=== PATIENT | male | born 1960 | race Caucasian/White ===

== ENCOUNTER 2021-02-06 13:01 | Inpatient (IN) | payer MEDICAID, SELFPAY ==
[~2021-02-06] VITALS: Ht 172.7 cm; Wt 82.1 kg
[~2021-02-06 13:01] MED LIST: FURO-572 PO; LACT10SO86 PO; OMEP40EC24 PO; POTA10TE30 PO; SODI100076 PO; SPIR50TA PO
[2021-02-06 13:12] VITALS: BP 117/86
--- NOTE | 2021-02-06 13:16 | NUR ---
Patient ambulated to bed 6 with steady/even gait, accompanied by caregiver.
--- NOTE | 2021-02-06 13:25 | NUR ---
Patient ambulated to restroom for urine sample.
--- NOTE | 2021-02-06 13:33 | NUR ---
Pt back onto bed from restroom; urine sample collected.
--- NOTE | 2021-02-06 13:35 | NUR ---
60 y/o M brought in from caregiver from home with c/c of abdominal distention. Per caregiver, patient has had cirrhosis for 2-3 months that has been worsening. Caregiver states patient was admitted on 01/26/21 at [facility] for 5 days, discharged with MD follow up with paracentesis. Caregiver states she has an appt tomorrow for paracentesis approval at 5pm, however, patient's abdominal distension worsen. Caregiver states larger abdomen, gaining 12 lbs in one week. Pt states associated SOB, difficulty walking. Pt denies fever, chills, cough, cold-like symptoms, chest pain. Pt placed onto property assessment monitor. Bed locked in lowest position, side rails x 1, call light in reach. PMH/Meds: Cirrhosis; Lasix, 1g Sodium Chloride, Potassium Cl 10 mEq, Lactulose 10g in 15mL NKA
--- NOTE | 2021-02-06 13:50 | NUR ---
Dr. Yadav is evaluating patient at bedside.
--- NOTE | 2021-02-06 14:32 | NUR ---
Patient resting in position of comfort. Respirations even/unlabored. All pt needs met at this time. pizza cook remains in place. Bed locked in lowest position, side rails x 2 for pt safety, call light in reach.
[2021-02-06 14:35] LABS: BASOPHILS % (AUTO) 0.1 % (0.0-2.0); EOSINOPHILS % (AUTO) 0.6 % (0.0-4.0); HEMATOCRIT 30.4 % (36-52); HEMOGLOBIN 10.6 g/dL (12.0-18.0); LYMPHOCYTES # (AUTO) 0.6 K/uL (2.0-11.5); LYMPHOCYTES % (AUTO) 8.2 % (20.5-51.1); MEAN CORPUSCULAR HEMOGLOBIN 39 pg (27-31); MEAN CORPUSCULAR HGB CONC 35 g/dL (33-37); MEAN CORPUSCULAR VOLUME 112.3 fL (80-94); MONOCYTES # (AUTO) 0.7 K/uL (0.8-1.0); MONOCYTES % (AUTO) 9.1 % (1.7-9.3); NEUTROPHILS # (AUTO) 6.1 K/uL (1.8-7.7); PLATELET COUNT (AUTO) 114 K/uL (140-450); RED BLOOD CELL COUNT(AUTO) 2.71 MIL/uL (4.20-6.10); RED CELL DISTRIBUTION WIDTH 19.1 % (11.6-13.7); WHITE BLOOD COUNT (AUTO) 7.4 K/uL (4.8-10.8)
--- NOTE | 2021-02-06 14:35 | NUR ---
Blood sample collected, handed to paola Rodriguez tech in ER bedside.
[2021-02-06 14:54] LABS: PROTHROMBIN TIME 11.9 secs (10.8-13.4)
[2021-02-06 15:09] LABS: ALBUMIN 2.9 g/dL (3.4-5.0); ANION GAP 14.2 (8-16); CARBON DIOXIDE 20.5 mmol/L (21-32); CREATININE 1.3 mg/dL (0.6-1.3); POTASSIUM 4.7 mmol/L (3.5-5.1)
--- NOTE | 2021-02-06 15:34 | NUR ---
Patient is resting with both eyes awake; semi-fowlers position. Respirations even/unlabored. All pt needs met at this time. engine monitor remains in place. Bed locked in lowest position, side rails x 1, call light in reach.
--- NOTE | 2021-02-06 15:35 | NUR ---
Patient provided with urinal at bedside.
--- NOTE | 2021-02-06 16:10 | NUR ---
COVID SWAB COLLECTED AND WALKED TO LAB.
--- NOTE | 2021-02-06 16:15 | NUR ---
Note ani in ED - 02/06/21 at 1739 by JOSE Patient is laying in semi-fowlers position. Respirations even/unlabored. telemetry monitor remains in place. Bed locked in lowest position, side rails x 1, call light in reach.
--- NOTE | 2021-02-06 16:29 | NUR ---
Patient is laying in semi-fowlers position. Respirations even/unlabored. engine monitor remains in place. Bed locked in lowest position, side rails x 1, call light in reach.
--- NOTE | 2021-02-06 16:42 | NUR ---
Report given to HANNAH Cantor.
--- NOTE | 2021-02-06 17:15 | NUR ---
Patient advised of ETA of transport to Telemetry. Pt is sitting upright with both eyes open in semi-fowlers. Respirations even/unlabored. front desk monitor remains in place. Bed locked in lowest position, side rails x 1, call light in reach.
--- NOTE | 2021-02-06 17:30 | NUR ---
Patient will be admitted to care of Dr. Gonzalez. Admited to Telemetry. Will go to room 105B. Belongings list completed. Report to HANNAH Cantor.
--- NOTE | 2021-02-06 17:35 | NUR ---
RECEIVED REPORT FROM ER NURSE FOR CONTINUITY OF CARE. PATIENT AWAKE, AAOX4, ABLE TO MAKE NEEDS KNOWN. ON TELE MONITOR. SODIUM LEVEL 121, NO MEDS GIVEN IN THE ER. IV TO LEFT AC 20G SALINE LOCK. VITAL SIGNS TAKEN. PATIENT DENIES PAIN OR SOB UPON ASSESSMENT. PATIENT STATED SOB ON EXERTION. ABDOMEN ROUND, FIRM, DISTENDED R/T ASCITES. PATIENT GAINED 12LBS FOR 1 WEEK. ORIENTED PATIENT TO THE ROOM AND HOSPITAL ENVIRONMENT. MRSA SWAB COLLECTED. SAFETY MEASURES IN PLACE, WILL CONTINUE TO MONITOR.
[2021-02-06 17:45] VITALS: BP 98/62
--- NOTE | 2021-02-06 18:12 | NUR ---
UPDATED PATIENT'S NIECE, ROXY ([id number]) REGARDING PATIENT'S CONDITION.
[2021-02-06] MEDS ORDERED: POTASSIUM CHLORIDE 10 MEQ TABER PO PRN (19:05)
[2021-02-06] MEDS ORDERED: ZOLPIDEM 5 MG TAB PO PRN (19:05)
[2021-02-06] MEDS ORDERED: HYDROcodone/APAP 7.5/325 MG 1 TAB PO PRN (19:05)
[2021-02-06] MEDS ORDERED: ONDANSETRON 4 MG/2 ML VIAL IM/IVP PRN (19:05)
[2021-02-06] MEDS ORDERED: ACETAMINOPHEN 325 MG TAB PO PRN (19:05)
[2021-02-06] MEDS ORDERED: guaiFENesin DM 200/20 MG-10 ML 10 ML UDC PO PRN (19:05)
[2021-02-06] MEDS ORDERED: DOCUSATE SODIUM 100 MG GELCAP PO PRN (19:05)
--- NOTE | 2021-02-06 19:20 | NUR ---
ENDORSED PATIENT TO SPORTS PHYSICAL THERAPIST RN FOR CONTINUITY OF CARE. PATIENT IN STABLE CONDITION.
[2021-02-06 19:55] LABS: CHOL/HDL RATIO 4.4 (1-4.5); FREE T4 (FREE THYROXINE) 0.67 ng/dL (0.76-1.46); MAGNESIUM 2.1 mg/dL (1.8-2.4); PHOSPHORUS 3.9 mg/dL (2.5-4.9); THYROID STIMULATING HORMONE 7.36 uIU/mL (0.34-3.74)
[2021-02-06 20:00] VITALS: BP 111/68
--- NOTE | 2021-02-06 20:00 | NUR ---
RECEIVED PATIENT A/A/OX3, LAYING IN BED. NO SIGN AND SYMPTOMS OF DISTRESS NOTED AT THIS TIME.PATIENT DENIES ANY ABDOMINAL PAIN, NAUSEA AND VOMITING. VITAL SIGNS STABLE, AFEBRILE, SATING 100% ON RA. SR ON AIRCRAFT ENGINEER, HR-72. FALL PRECAUTION IMPLEMENTED. INSTRUCTED THE PT TO CALL FOR ASSISTANCE AT ALL TIMES. PT VERBALIZED UNDERSTANDING. CALL LIGHT WITHIN REACH. WILL CONTINUE POC AND MONITORING.
[2021-02-06 20:01] LABS: APPEARANCE,URINE CLEAR (CLEAR); BILIRUBIN,URINE 1+ (NEGATIVE); BLOOD, URINE 2+ (NEGATIVE); COLOR,URINE DARK YELLOW (YELLOW); LEUKOCYTE ESTERASE ,URINE NEGATIVE (NEGATIVE); NITRITE, URINE NEGATIVE (NEGATIVE); PH,URINE 5.5 (5.0-9.0); UGLUCOSE NEGATIVE (NEGATIVE)
[2021-02-06 20:06] LABS: RBC,URINE 11-20 (MOD) /HPF (0-5); WBC,URINE 0-5 /HPF (0-5)
[2021-02-06 20:18] LABS: BARBITURATE, URINE NEGATIVE ng/ml (NEG <=200); BENZODIAZEPINE, URINE NEGATIVE ng/mL (NEG <=200); CANNABINOID, URINE NEGATIVE ng/mL (NEG <=50); COCAINE, URINE NEGATIVE ng/mL (NEG <=300); OPIATE, URINE NEGATIVE ng/mL (NEG <=2000); PHENCYCLIDINE SCREEN,URINE NEGATIVE ng/mL (NEG <=25)
[2021-02-06] MEDS: SODIUM CHLORIDE 1 GM TAB PO SCH (20:29)
[2021-02-06] MEDS: LACTULOSE 20 GM/30 ML UDC PO SCH (21:36)
--- NOTE | 2021-02-06 22:00 | NUR ---
Administered all the scheduled medications as ordered. patient tolerated it well and no adverse drug reaction noted and no complain from the patient.
[2021-02-07] VITALS: BP 101/67
--- NOTE | 2021-02-07 | NUR ---
PATIENT VITALS SIGNS STABLE, SATING 99% ON RA. NO COMPLAIN OF PAIN AT THIS TIME. SR ON EHS SPECIALIST, HR-[id number].
--- NOTE | 2021-02-07 02:00 | NUR ---
PATIENT ASLEEP AT THIS TIME. NO SIGN AND SYMPTOMS OF DISTRESS NOTED AT THIS TIME. VISIBLE CHEST RISE AND FALL NOTED. SAFETY MEASURES IN PLACED.
[2021-02-07 04:00] VITALS: BP 116/77
--- NOTE | 2021-02-07 04:00 | NUR ---
PATIENT VITALS SIGNS STABLE, SATING 100% ON RA. NO COMPLAIN OF PAIN AT THIS TIME. SR ON BUSINESS MGR, HR-[id number].
[2021-02-07 06:39] LABS: BASOPHILS % (AUTO) 0.3 % (0.0-2.0); EOSINOPHILS # (AUTO) 0.1 K/uL (0-0.4); LYMPHOCYTES # (AUTO) 0.8 K/uL (2.0-11.5); MEAN CORPUSCULAR HEMOGLOBIN 40 pg (27-31); MEAN CORPUSCULAR HGB CONC 35 g/dL (33-37); MEAN CORPUSCULAR VOLUME 113.3 fL (80-94); MONOCYTES # (AUTO) 0.7 K/uL (0.8-1.0); MONOCYTES % (AUTO) 11.5 % (1.7-9.3); NEUTROPHILS # (AUTO) 4.5 K/uL (1.8-7.7); NEUTROPHILS % (AUTO) 74.2 % (42.2-75.2); PLATELET COUNT (AUTO) 121 K/uL (140-450); RED BLOOD CELL COUNT(AUTO) 2.74 MIL/uL (4.20-6.10); RED CELL DISTRIBUTION WIDTH 18.9 % (11.6-13.7)
--- NOTE | 2021-02-07 07:20 | NUR ---
RECEIVED BEDSIDE ENDORSEMENT FROM NIGHTSTXFT NURSE FOR CONTINUITY OF CARE.
[2021-02-07 07:51] LABS: ANION GAP 13.9 (8-16); CARBON DIOXIDE 21.7 mmol/L (21-32); CREATININE 1.2 mg/dL (0.6-1.3); POTASSIUM 5.6 mmol/L (3.5-5.1)
[2021-02-07 08:00] VITALS: BP 116/75
[2021-02-07] MEDS: PANTOPRAZOLE 40 MG TABEC PO SCH (08:56)
[2021-02-07] MEDS: SODIUM CHLORIDE 1 GM TAB PO SCH (08:57)
[2021-02-07] MEDS: LACTULOSE 20 GM/30 ML UDC PO SCH ×3 (08:58→17:26)
[2021-02-07] MEDS ORDERED: FUROSEMIDE 20 MG TAB PO SCH (09:00)
[2021-02-07] MEDS ORDERED: SPIRONOLACTONE 50 MG TAB PO SCH (09:00)
--- NOTE | 2021-02-07 09:11 | NUR ---
ADMINISTERED PRESCRIBED MEDS PER MD ORDER. PATIENT TOLERATED WELL. MEDICATION EDUCATION PROVIDED. REINFORCEMENT NEEDED. PATIENT HAD SMALL LIQUID EMESIS DURING ADMINISTRATION, APROX 300ML. PATIENT DENIES PAIN, STATED FEELING BETTER AFTER EMESIS. PATIENT STATED HAS HAD 3 SMALL BM THIS AM, NOT DIARRHEA. SAFETY MEASURES IN PLACE. WILL CONTINUE TO MONITOR.
--- NOTE | 2021-02-07 09:21 | NUR ---
PATIENT HAS BEEN SCREENED AND CATEGORIZED MODERATE NUTRITION RISK. PATIENT WILL BE SEEN WITHIN 3-5 DAYS OF ADMISSION. 02/09/21 02/11/[address]
[2021-02-07] MEDS ORDERED: LEVOTHYROXINE SODIUM 100 MCG VIAL IV SCH (09:30)
[2021-02-07] MEDS ORDERED: SODIUM ZIRCONIUM CYCLOSILICATE 10 GM POWD.PACK PO SCH (10:00)
--- NOTE | 2021-02-07 10:56 | NUR ---
SOCIAL WORK NOTE: Patient's Orientation Unable To Assess Information Provided By NOEL BAIRD Comments SW WAS UNABLE TO MEET PATIENT AT BEDSIDE. SW COMPLETED ASSESSMENT WITH PATIENT'S FAMILY. University Internship, Realtionship and Phone Number NOEL SMITH [phone] Healthcare Power of Packing Clerk No Does Patient Have a POLST No Identifying Problems No Social Work Triggers Is A Social Work Consult Needed No Mandate Report Filed No Explanation Of Identifying Problems PATIENT IS A 60-YEAR-OLD MALE ADMITTED FOR ASCITES AND HYPONATREMIA. PATIENT HAS PMHX OF LIVER CIRRHOSIS AND ASCITES. Admitted From Home Pre-Admission Level Of Functioning Status Independent/Ambulatory Prior Resources/Services Used In Last 12 Months No Prior Resources Used Prior DME No Prior DME Used Dialysis Comments N/A Living Situation Lives With Family House Patient Had Caregiver No Home Support No Caregiver Issues Financial Issues No Known Financial Issue Referral To The Financial Counselor Needed No Factors/Needs No D/C Needs Identified Pt/Rep Participated In Discharge Plan Yes Patient/Family Agress With Discharge Plan Yes Discharge Plan Comments TENTATIVE DISCHARGE PLAN IS FOR PATIENT TO RETURN HOME. DC Plan Status Initiated
[2021-02-07] MEDS ORDERED: LEVOTHYROXINE 0.05 MG TAB PO SCH (11:00)
[2021-02-07 12:00] VITALS: BP 111/76
--- NOTE | 2021-02-07 12:03 | NUR ---
ADMINISTERED PRESCRIBED MEDS PER MD ORDER. PATIENT TOLERATED WELL. MEDICATION EDUCATION PROVIDED. REINFORCEMENT NEEDED. RESPIRATORY CARE INSTRUCTOR AT BEDSIDE, PATIENT DENIES PAIN. NO SIGNS OF DISTRESS NOTED. SAFETY MEASURES IN PLACE. WILL CONTINUE TO MONITOR.
--- NOTE | 2021-02-07 12:12 | NUR ---
DC PLANNIN YRS OLD MALE PATIENT WAS ADMITTED FROM HOME WITH A DX OF ASCITES, HYPONATREMIA, HEPATORENAL SYNDROME AND LIVER MASS. NA+122 K+5.6 . PT HAS A HX OF ADVANCED LIVER CIRRHOSIS , HEPATIC ENCEPHALOPATHY. CXR SHOWED LOW LUNG VOLUMES AND MILD BIBASAL ATELECTASIS. RAPID COVID TEST NEGATIVE. CT ABD SOWED ADMINISTERED IV LASIX AND CONTINUED HOME MEDS. CONSULTED NEPHRO AND GI. DC PLAN TO GO HOME WHEN STABLE CM TO FOLLOW.
--- NOTE | 2021-02-07 13:50 | NUR ---
ADMINISTERED PRESCRIBED MEDS PER MD ORDER. PATIENT TOLERATED WELL. MEDICATION EDUCATION PROVIDED. REINFORCEMENT NEEDED. PATIENT ABLE TO MAKE NEEDS KNOWN, PATIENT PROVIDED W/ REQUESTED SNACK. DENIES PAIN. SAFETY MEASURES IN PLACE. WILL CONTINUE TO MONITOR
--- NOTE | 2021-02-07 15:59 | NUR ---
HOURLY ROUNDING PERFORMED. PATIENT IS RESTING IN BED. ABLE TO MAKE NEEDS KNOWN. NO SIGNS OF DISTRESS OR DISCOMFORT. SAFETY MEASURES IN PLACE. WILL CONTINUE TO MONITOR.
[2021-02-07 16:00] VITALS: BP 107/60
--- NOTE | 2021-02-07 17:30 | NUR ---
ADMINISTERED PRESCRIBED MEDS PER MD ORDER. PATIENT UP AD CARLOTTA W/ STEADY GAIT. PATIENT DENIES PAIN. PATIENT TOLERATED MEDICATION WELL. MEDICATION EDUCATION REINFORCEMENT NEEDED. SAFETY MEASURES IN PLACE. WILL CONTINUE TO MONITOR.
[2021-02-07] MEDS ORDERED: ALBUMIN HUMAN 25% 100 ML IV ONE (17:40)
[2021-02-07] MEDS ORDERED: NACL 3% 500 ML IV ONE (17:45)
--- NOTE | 2021-02-07 19:06 | NUR ---
ADMINISTERED PRESCRIBED MEDS PER MD ORDER. PATIENT TOLERATED WELL. MEDICATION EDUCATION PROVIDED. SAFETY MEASURES IN PLACE. PATIENT DINNER TRAY AT BEDSIDE.
--- NOTE | 2021-02-07 19:23 | NUR ---
BEDSIDE ENDORSEMENT PROVIDED TO NIGHTSHIFT NURSE FOR CONTINUITY OF CARE.
[2021-02-07 20:00] VITALS: BP 93/72
--- NOTE | 2021-02-07 20:00 | NUR ---
RECEIVED PATIENT A/A/AOX4, LAYING IN BED WATCHING TV DURING ROUNDS. NO SIGN AND SYMPTOMS OF DISTRESS NOTED. PATIENT S/P PARACENTESIS TODAY. PUNCTURE SITE WITH DRESSING ON THE LEFT LOWER ABDOMEN C/D/I. PATIENT DENIES ANY PAIN AT THIS TIME. IVF INFUSING ORDERED.SR ON SECURITY FLEX OFFICER, HR-[id number]. INSTRUCTED THE PT TO SAVE ALL HIS URINE FOR STRICT I & O AND MADE AWARE THAT HE IS ON A FLUID RESTRICTION. PATIENT VERBALIZED UNDERSTANDING WITH THE POC. CALL LIGHT WITHIN REACH. WILL CONTINUE POC AND MONITORING.
[2021-02-07 20:40] LABS: GLUCOSE,BODY FLUID 108 mg/dL
--- NOTE | 2021-02-07 22:00 | NUR ---
NO SCHEDULED MEDICATION AT THIS TIME. PT ASKED FOR 2 JELLO AND GIVEN. REMINDED PT ABOUT HIS FLUID RESTRICTIONS AND VERBALIZED UNDERSTANDING. CALL LIGHT WITHIN REACH.
[2021-02-08] VITALS: BP 92/59
--- NOTE | 2021-02-08 | NUR ---
Patient 92/59, pt aspmtomatic. Denies dizziness or lightheadedness. HR-72, afebrile, sating 99% on RA. SR on vehicle monitor technician, HR- 72. Denies any pain at this time. Call light within reach. Will continue to monitor vital signs. Addendum: 02/08/21 at 0328 by Evangelina Ramirez RN RN correction: Pt BP 92
--- NOTE | 2021-02-08 02:00 | NUR ---
PATIENT ASLEEP AT THIS TIME. NO SIGN AND SYMPTOMS OF DISTRESS NOTED AT THIS TIME. VISIBLE CHEST RISE AND FALL NOTED. SAFETY MEASURES IN PLACED.
[2021-02-08 04:00] VITALS: BP 104/66
--- NOTE | 2021-02-08 04:00 | NUR ---
PATIENT VITALS SIGNS STABLE, SATING 99% ON RA. NO COMPLAIN OF PAIN AT THIS TIME. SR ON EDITOR, HR-75.
[2021-02-08 06:02] LABS: BASOPHILS % (AUTO) 0.6 % (0.0-2.0); EOSINOPHILS # (AUTO) 0.1 K/uL (0-0.4); EOSINOPHILS % (AUTO) 1.3 % (0.0-4.0); HEMATOCRIT 29.3 % (36-52); HEMOGLOBIN 10.3 g/dL (12.0-18.0); LYMPHOCYTES # (AUTO) 0.6 K/uL (2.0-11.5); LYMPHOCYTES % (AUTO) 14.1 % (20.5-51.1); MEAN CORPUSCULAR HEMOGLOBIN 40 pg (27-31); MEAN CORPUSCULAR HGB CONC 35 g/dL (33-37); MEAN CORPUSCULAR VOLUME 113.3 fL (80-94); MONOCYTES # (AUTO) 0.6 K/uL (0.8-1.0); NEUTROPHILS # (AUTO) 3.1 K/uL (1.8-7.7); PLATELET COUNT (AUTO) 98 K/uL (140-450); RED BLOOD CELL COUNT(AUTO) 2.59 MIL/uL (4.20-6.10); RED CELL DISTRIBUTION WIDTH 18.8 % (11.6-13.7); WHITE BLOOD COUNT (AUTO) 4.3 K/uL (4.8-10.8)
[2021-02-08 06:17] LABS: CARBON DIOXIDE 21.6 mmol/L (21-32); POTASSIUM 5.6 mmol/L (3.5-5.1)
--- NOTE | 2021-02-08 06:22 | NUR ---
PATIENT STABLE. NO ACUTE EVENT THROUGHOUT THE NIGHT. NO COMPLAIN AT THIS TIME. MEDICATED THE PT FOR PAIN EARLIER. ALL NEEDS ATTENDED. CALL LIGHT WITHIN REACH. WILL ENDORSE THE PT TO THE ONCOMING RN FOR CONTINUITY OF CARE.
[2021-02-08] MEDS: LEVOTHYROXINE 0.05 MG TAB PO SCH (06:34)
--- NOTE | 2021-02-08 07:29 | NUR ---
PT REPORT RECEIVED FROM NIGHT NURSE. PT IS RESTING IN BED. NO S/S OF DISTRESS. LEFT FORE ARM IV 20 G IS CLEAN DRY AND INTACT. L HAND 22 G IS PATENT DRY AND CLEAN. ALL SAFETY MEASURES ARE IN PLACE. CALL LIGHT IS WITHIN REACH WILL CONTINUE TO MONITOR.
[2021-02-08 08:00] VITALS: BP 99/66
[2021-02-08] MEDS: NACL 0.9% 1,000 ML IV SCH ×2 (08:20→21:40)
[2021-02-08] MEDS ORDERED: ALBUMIN HUMAN 25% 100 ML IV ONE (09:00)
[2021-02-08] MEDS ORDERED: SODIUM ZIRCONIUM CYCLOSILICATE 10 GM POWD.PACK PO SCH (09:00)
[2021-02-08] MEDS ORDERED: FUROSEMIDE 20 MG TAB PO SCH (09:00)
[2021-02-08] MEDS: LACTULOSE 20 GM/30 ML UDC PO SCH ×3 (09:06→17:26)
[2021-02-08] MEDS: PANTOPRAZOLE 40 MG TABEC PO SCH (09:08)
--- NOTE | 2021-02-08 09:29 | NUR ---
ADMINISTERED PRESCRIBED MEDS PER MD ORDER. PT EDUCATED AND VERBALIZED UNDERSTANDING PATIENT RESTING IN BED.PATIENT SHOWS NO SIGNS OF PAIN, DISCOMFORT OR DISTRESS. RESPIRATIONS EVEN AND UNLABORED ON ROOM AIR. SAFETY MEASURES IN PLACE. WILL CONTINUE TO MONITOR.
[2021-02-08 10:48] LABS: T4 (THYROXINE) 2.6 ug/dL (4.5 - 12.0)
--- NOTE | 2021-02-08 10:49 | NUR ---
PT IS RESTING IN BED COMFORTABLY ON HIS SIDE. PT DENIES PAIN AT THIS TIME. NO SIGNS OR SYMPTOMS OF DISTRESS. RESPIRATIONS EVEN AND UNLABORED. CALL LIGHT IS WITHIN REACH. PT IS ABLE TO MAKE TO MAKE NEEDS KNOWN. SAFETY MEASURES IN PLACE. WILL CONTINUE TO MONITOR.
[2021-02-08 12:00] VITALS: BP 107/68
--- NOTE | 2021-02-08 12:15 | NUR ---
PT IS AMBULATED TO THE RESTROOM. TOLERATED WELL. PT AMBULATED TO BED. NO S/S OF DISTRESS. CALL LIGHT IS WITHIN REACH. ALL SAFETY MEASURES ARE IN PLACE WILL CONTINUE TO MONITOR.
--- NOTE | 2021-02-08 13:30 | NUR ---
MEDICATION GIVEN PER MD ORDER. PT EDUCATED AND VERBALIZED UNDERSTANDING. NO S/S OF DISTRESS. CALL LIGHT IS WITHIN REACH. ALL SAFETY MEASURES ARE IN PLACE WILL CONTINUE TO MONITOR.
--- NOTE | 2021-02-08 15:30 | NUR ---
SPOKE TO CAREGIVER NOEL. AND UPDATED . NIECE VERBALIZED UNDERSTANDING. SHE SPOKE TO PATIENT.NO S/S OF DISTRESS. CALL LIGHT IS WITHIN REACH. ALL SAFETY MEASURES ARE IN PLACE WILL CONTINUE TO MONITOR.
[2021-02-08 16:00] VITALS: BP 101/65
--- NOTE | 2021-02-08 17:23 | NUR ---
PT IN BED.MEDICATION GIVEN PER MD ORDER.PT TOLERATED WELL. PT EDUCATED AND VERBALIZED UNDERSTANDING. NO S/S OF DISTRESS. CALL LIGHT IS WITHIN REACH. ALL SAFETY MEASURES ARE IN PLACE WILL CONTINUE TO MONITOR.
[2021-02-08 17:42] LABS: ALBUMIN,BODY FLUID 0.8 g/dL
[2021-02-08 18:34] LABS: APPEARANCE,SPUN,BODY FLUID CLEAR (CLEAR); APPEARANCE,UNSPUN,BODY FLUID CLEAR (CLEAR); COLOR,BODY FLUID YELLOW (LT YELLOW); SPECIMENTYPE,BODY FLUID PARACENTESIS; TOTAL VOLUME,BODY FLUID 12000 mL; WBC, BODY FLUID 0 /cu. mm.
[2021-02-08 18:35] LABS: RBC, BODY FLUID 5782 /cu. mm.
--- NOTE | 2021-02-08 18:55 | NUR ---
PT IS SITTING IN BED EATING DINNER. NO S/S OF DISTRESS. CALL LIGHT IS WITHIN REACH. ALL SAFETY MEASURES ARE IN PLACE WILL ENDORSE TO DEMOLITION HAMMER OPERATOR NURSE FOR CONTINUITY OF CARE.
[2021-02-08 20:00] VITALS: BP 103/53
--- NOTE | 2021-02-08 20:00 | NUR ---
RECEIVED PATIENT A/A/AOX4, LAYING IN BED WATCHING TV DURING ROUNDS. NO SIGN AND SYMPTOMS OF DISTRESS NOTED. PATIENT S/P PARACENTESIS DAY #1. PUNCTURE SITE WITH DRESSING ON THE LEFT LOWER ABDOMEN C/D/I. PATIENT DENIES ANY PAIN AT THIS TIME. IVF INFUSING ORDERED.SR ON ROOM SERVER, HR-[id number]. INSTRUCTED THE PT TO SAVE ALL HIS URINE FOR STRICT I & O AND MADE AWARE THAT HE IS ON A FLUID RESTRICTION. PATIENT VERBALIZED UNDERSTANDING WITH THE POC. CALL LIGHT WITHIN REACH. WILL CONTINUE POC AND MONITORING.
--- NOTE | 2021-02-08 22:00 | NUR ---
NO MEDICATION SCHEDULE AT THIS TIME. PT AWAKE AND EATING JELLO. PATIENT REMINDED THAT HE IS ON FLUID RESTRICTION. PT ASKED IF HE CAN DRINK ICE WATER. PT MADE AWARE THAT HE CAN BUT LIMITED. PROVIDED THE PT WITH ICE CHIPS INSTEAD. PT VERBALIZED UNDERSTANDING WITH THE FLUID RESTRICTION. CALL LIGHT WITHIN REACH.
--- NOTE | 2021-02-08 23:30 | NUR ---
PATIENT WAS ASKING FOR MORE MILK. PT MADE AWARE AGAIN THAT HE IS ON FLUID RESTRICTION OF 500ML/DAY. PT ALSO REMINDED NOT TO DRINK OR EAT ANYTHING AFTER MIDNIGHT FOR THE EGD IN AM. PATIENT VERBALIZED UNDERSTANDING AND AWARE THAT HE IS NOT SUPPOSED TO DRINK AND EAT ANYMORE AFTER MIDNIGHT.CALL LIGHT WITHIN REACH.
[2021-02-09] VITALS: BP 111/62
--- NOTE | 2021-02-09 | NUR ---
PATIENT VITALS SIGNS STABLE, SATING 100% ON RA. NO SIGN AND SYMPTOMS OF DISTRESS NOTED AT THIS TIME. SR ON SLITTER SCORER, HR-81.
--- NOTE | 2021-02-09 02:00 | NUR ---
PATIENT ASLEEP AT THIS TIME. NO SIGN AND SYMPTOMS OF DISTRESS NOTED AT THIS TIME. VISIBLE CHEST RISE AND FALL NOTED. SAFETY MEASURES IN PLACED.
[2021-02-09 04:00] VITALS: BP 102/71
--- NOTE | 2021-02-09 04:00 | NUR ---
PATIENT VITALS SIGNS STABLE, SATING 98% ON RA. NO SIGN AND SYMPTOMS OF DISTRESS NOTED AT THIS TIME. SR ON HOSPITALITY SERVICES MANAGER, HR-75.
[2021-02-09 06:13] LABS: BASOPHILS % (AUTO) 0.9 % (0.0-2.0); EOSINOPHILS # (AUTO) 0.1 K/uL (0-0.4); EOSINOPHILS % (AUTO) 1.4 % (0.0-4.0); HEMATOCRIT 29.7 % (36-52); HEMOGLOBIN 10.4 g/dL (12.0-18.0); LYMPHOCYTES # (AUTO) 0.5 K/uL (2.0-11.5); MEAN CORPUSCULAR HEMOGLOBIN 40 pg (27-31); MEAN CORPUSCULAR HGB CONC 35 g/dL (33-37); MEAN CORPUSCULAR VOLUME 113.7 fL (80-94); MONOCYTES # (AUTO) 0.5 K/uL (0.8-1.0); NEUTROPHILS # (AUTO) 2.8 K/uL (1.8-7.7); NEUTROPHILS % (AUTO) 71.7 % (42.2-75.2); PLATELET COUNT (AUTO) 102 K/uL (140-450); RED BLOOD CELL COUNT(AUTO) 2.61 MIL/uL (4.20-6.10); RED CELL DISTRIBUTION WIDTH 18.9 % (11.6-13.7)
[2021-02-09 06:33] LABS: ANION GAP 13.1 (8-16); CARBON DIOXIDE 21.9 mmol/L (21-32)
[2021-02-09] MEDS: LEVOTHYROXINE 0.05 MG TAB PO SCH (06:44)
--- NOTE | 2021-02-09 07:35 | NUR ---
PT RECIEVED FROM CERTIFIED PROFESSIONAL ERGONOMIST RN. PT IS RESTIN IN BED EYES CLOSED EASY TO AROUSE. WILL CONTINUE TO MONITOR
[2021-02-09 08:00] VITALS: BP 99/60
[2021-02-09] MEDS: LACTULOSE 20 GM/30 ML UDC PO SCH ×3 (09:00→17:15)
[2021-02-09] MEDS: PANTOPRAZOLE 40 MG TABEC PO SCH (09:00)
--- NOTE | 2021-02-09 09:37 | NUR ---
PT IS IN BED. HEAD COVERED. PT REQUESTED TO BE DISCONNECTED FROM IV TO AMBULATE TO BATHROOM. PT EDUCATED TO URINATE ON URINAL TO MEASURE OUTPUT. PT VERBALIZED UNDERSTANDING. NO S/S OF DISTRESS AT THIS TIME. CALL LIGHT IS WITHIN REACH. ALL SAFETY MEASURES ARE IN PLACE. WILL CONTINUE TO MONITOR.
[2021-02-09] MEDS ORDERED: FUROSEMIDE 20 MG/2 ML VIAL IVP SCH (10:00)
[2021-02-09] MEDS ORDERED: SODIUM ZIRCONIUM CYCLOSILICATE 10 GM POWD.PACK PO SCH (10:00)
[2021-02-09] MEDS: NACL 0.9% 1,000 ML IV SCH (10:12)
[2021-02-09] MEDS ORDERED: LACT10SO86 PO (10:34)
[2021-02-09] MEDS ORDERED: FURO-572 PO (10:34)
[2021-02-09] MEDS ORDERED: SPIR50TA PO (10:34)
--- NOTE | 2021-02-09 11:55 | NUR ---
PT IS AMBULATING IN ROOM. PT'S FLUIDS WERE GIVEN. NO S/S OF DISTRESS AT THIS TIME. CALL LIGHT IS WITHIN REACH. ALL SAFETY EASURES ARE IN PLACE. WILL CONTINUE TO MONITOR.
[2021-02-09 12:00] VITALS: BP 111/73
--- NOTE | 2021-02-09 13:35 | NUR ---
PT WAS EDUCATED ABOUT REMOVING JEWELRY AND CLOTHING BEFORE PROCEDURE. PT VERBALIZED UNDERSTANDING. NO S/S OF DISTRESS AT THIS TIME. CALL LIGHT IS WITHIN REACH. ALL SAFETY EASURES ARE IN PLACE. WILL CONTINUE TO MONITOR.
[2021-02-09] MEDS ORDERED: fentaNYL citrate 0.05 MG/ML VIAL ONE (13:53)
[2021-02-09] MEDS ORDERED: diphenhydrAMINE 50 MG/ML VIAL ONE (13:54)
[2021-02-09] MEDS ORDERED: MIDAZOLAM 5 MG/5 ML VIAL ONE (13:54)
[2021-02-09] MEDS ORDERED: MIDAZOLAM 2 MG/2 ML VIAL IVP ONE (15:30)
[2021-02-09] MEDS ORDERED: fentaNYL citrate 0.05 MG/ML VIAL IVP ONE (15:30)
--- NOTE | 2021-02-09 15:35 | NUR ---
PT IS BACK FROM PROCEDURE. PT RESTING IN BED. NO S/S OF DISTRESS AT THIS TIME. CALL LIGHT IS WITHIN REACH. ALL SAFETY EASURES ARE IN PLACE. WILL CONTINUE TO MONITOR.
[2021-02-09 16:00] VITALS: BP 115/72
[2021-02-09] MEDS ORDERED: METO25TA PO (16:03)
[2021-02-09 17:18] VITALS: BP 115/72
--- NOTE | 2021-02-09 17:35 | NUR ---
PT IS SLEEPING IN BED. EASY TO ROUSE. MEDICATIONS GIVEN PER MD ORDER. PT EDUCATED. PT VERBALIZED UNDERSTANDING. PT TOLERATED WELL. NO S/S OF DISTRESS AT THIS TIME. CALL LIGHT IS WITHIN REACH. ALL SAFETY MEASURES ARE IN PLACE. WILL CONTINUE TO MONITOR.
--- NOTE | 2021-02-09 18:10 | NUR ---
PT DISCHARGE INSTRUCTIONS GIVE. PT VERBALIZED UNDERSTANDING. PTS CAREGIVER CALLED NOEL [phone] VERBALIZED UNDERSTANDING FOR CONTINUITY OF CARE. DISCHARGE PACKET GIVEN TO PATIENT. CAREGIVER STATED SHE WILL BE HERE IN THIRTY MIN . WILL CONTINUE TO MONITOR.
--- NOTE | 2021-02-09 19:10 | NUR ---
PT LEFT HOME VIA WHEEL CHAIR IN STABLE CONDITION. IV LINES WERE TAKEN OUT CANULA INTACT. TELE MONITOR RETURNED. ID BANDS REMOVED. PT EDUCATED AND VERBALIZED UNDERSTANDING OK CONTINUITY OF CARE
== END 2021-02-09 19:24 | disposition home or self-care (01) | DRG 280 ==
LOC: MED 13:01 → MMU 15:41 → MTU 17:15
PROVIDERS: ADMIT Family Medicine; ATTEND Family Medicine
PROC: 0W9G3ZZ Drainage of Peritoneal Cavity, Percutaneous Approach (ICD-10-PCS; 2021-02-07)
PROC: 06L38CZ Occlusion of Esophageal Vein with Extraluminal Device, Via Natural or Artificial Opening Endoscopic (ICD-10-PCS; principal; 2021-02-09 15:30)
DX: K70.31 Alcoholic cirrhosis of liver with ascites (principal); E43 Unspecified severe protein-calorie malnutrition; G93.41 Metabolic encephalopathy; E87.5 Hyperkalemia; E83.51 Hypocalcemia; N18.31 Chronic kidney disease, stage 3a; E03.9 Hypothyroidism, unspecified; D64.9 Anemia, unspecified; I85.10 Secondary esophageal varices without bleeding; K29.70 Gastritis, unspecified, without bleeding; I12.9 Hypertensive chronic kidney disease with stage 1 through stage 4 chronic kidney disease, or unspecified chronic kidney disease; R16.0 Hepatomegaly, not elsewhere classified; E87.1 Hypo-osmolality and hyponatremia; E83.52 Hypercalcemia; K72.90 Hepatic failure, unspecified without coma; K21.9 Gastro-esophageal reflux disease without esophagitis; Z68.27 Body mass index [BMI] 27.0-27.9, adult; Z20.822 Contact with and (suspected) exposure to COVID-19; N17.0 Acute kidney failure with tubular necrosis
CPT/HCPCS: 36415; 49083; 71045; 76700; 76705; 80048; 80053; 80305; 81001; 82105; 82140; 82150; 82945; 83036; 83615; 83690; 83735; 83880; 84100; 84157; 84436; 84439; 84443; 84479; 84484; 85025; 85610; 85730; 87070; 87075; 87081; 87086; 87205; 89051; 93005; 99285; J1200; J2001; J2250; J3010; J3490; J7030; P9046

== ENCOUNTER 2021-02-24 10:04 | Emergency (ER) | payer MEDICAID, SELFPAY ==
[~2021-02-24] VITALS: Ht 170.2 cm; Wt 63.5 kg
[~2021-02-24 10:04] MED LIST changes: -FURO-572 PO; +METO25TA PO; -POTA10TE30 PO; -SODI100076 PO; -SPIR50TA PO
[2021-02-24 10:07] VITALS: BP 100/56
--- NOTE | 2021-02-24 10:07 | NUR ---
Ambulated to bed 4
[2021-02-24] MEDS ORDERED: LACT-103 PO (10:25)
[2021-02-24 10:33] VITALS: BP 100/56
--- NOTE | 2021-02-24 10:33 | NUR ---
Patient discharged with v/s stable. Written and verbal after care instructions given and explained to patient and his niece. Patient alert, oriented and verbalized understanding of instructions. Ambulatory with steady gait. All questions addressed prior to discharge. ID band removed. Patient advised to follow up with PMD. Rx of Lactulose given. Patient educated on indication of medication including possible reaction and side effects. Opportunity to ask questions provided and answered.
== END 2021-02-24 10:33 | disposition home or self-care (01) ==
LOC: MED 10:04
DX: K74.69 Other cirrhosis of liver (principal); Z76.0 Encounter for issue of repeat prescription; Z79.899 Other long term (current) drug therapy
CPT/HCPCS: 99281